=== PATIENT | female | born 1990 | race Caucasian/White ===

== ENCOUNTER 2018-02-19 14:40 | Emergency (ER) | payer OTHER ==
[~2018-02-19] VITALS: Ht 170.2 cm; Wt 108.9 kg
[~2018-02-19 14:40] MED LIST: ADIPEX-P37.5 MG PO; CLINDAMYCIN HC300 MG PO; IBUPROFEN 800800 M1 PO; MURINE EAR DROP15 ML OTIC; TOPAMAX 100 MG100 MG PO; TOPAMAX50 MG PO
[2018-02-19] MEDS ORDERED: SUMATRIPTAN SUC50 MG PO (14:46)
[2018-02-19 16:10] VITALS: BP 137/93
== END 2018-02-19 16:10 | disposition home or self-care (01) ==
LOC: ER 14:40
DX: S60.812A Abrasion of left wrist, initial encounter (principal); W26.9XXA Contact with unspecified sharp object(s), initial encounter; Y93.89 Activity, other specified; Y92.89 Other specified places as the place of occurrence of the external cause; Y99.8 Other external cause status; Z23 Encounter for immunization